=== PATIENT | male | born 1990 | race American Indian/Alaskan Native ===

== ENCOUNTER 2016-09-12 06:05 | Emergency (ER) | payer BC ==
[2016-09-12 06:18] VITALS: BP 138/78; PULSE 70; RESP 16; TEMP 97.7; O2SAT 98
--- NOTE | 2016-09-12 07:19 | ED PDOC ---
HPI: General Adult Time Seen by Provider: 09/12/16 06:12 Chief Complaint (Nursing): Lower Extremity Problem/Injury Chief Complaint (Provider): Insomnia History Per: Patient History/Exam Limitations: no limitations Onset/Duration Of Symptoms: Days (x6 months), Intermittent Episodes Have you had recent travel within the past 21 days to any of the following countries: [place], [place], [place] or [place]?: No Current Symptoms Are (Timing): Still Present Severity: Moderate Additional Complaint(s): Zaire Wheeler is a 26 year old male, with no pertinent past medical history, who presents to the emergency department for the evaluation of insomnia, that the patient has been experiencing for the past 6 months. Patient reports frustration due to his irregular sleep pattern and inability to fall asleep, prompting his visit to the emergency department. He also reports a diffuse, non-localized numbness sensation to his body. Associated bilateral foot pain is also currently present. 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 PMD: Fredy Bedolla Past Medical History Reviewed: Historical Data, Nursing Documentation, Vital Signs Vital Signs: Last Vital Signs Temp 97.7 F 09/12/16 06:13 Pulse 70 09/12/16 06:13 Resp 16 09/12/16 06:13 BP 138/78 09/12/16 06:13 Pulse Ox 98 09/12/16 10:23 - Medical History PMH: No Chronic Diseases - Surgical History Surgical History: No Surg Hx - Family History Family History: States: No Known Family Hx - Social History Current smoker - smoking cessation education provided: No Ex-Smoker (has not smoked in the last 12 months): Yes Alcohol: Occasional Drugs: Denies - Home Medications Home Medications: Ambulatory Orders Medication Instructions Recorded Ibuprofen [Motrin Tab] 800 mg PO Q8 PRN #20 tab 07/21/16 - Allergies Allergies/Adverse Reactions: Allergies Allergy/AdvReac Type Severity Reaction Status Date / Time No Known Allergies Allergy Verified 09/12/16 06:12 Review of Systems ROS Statement: Except As Marked, All Systems Reviewed And Found Negative Musculoskeletal: Positive for: Foot Pain (b/l) Neurological: Positive for: Numbness (diffuse) Psych: Positive for: Anxiety, Other (frustration due to insomnia) Physical Exam - Reviewed Nursing Documentation Reviewed: Yes Vital Signs Reviewed: Yes - Physical Exam Appears: Positive for: Non-toxic, No Acute Distress Head Exam: Positive for: ATRAUMATIC, NORMOCEPHALIC Skin: Positive for: Normal Color, Warm, Dry Eye Exam: Positive for: Normal appearance, EOMI, PERRL ENT: Positive for: Normal ENT Inspection. Negative for: Pharyngeal Erythema, Tonsillar Exudate, Tonsillar Swelling Neck: Positive for: Normal, Painless ROM Cardiovascular/Chest: Positive for: Regular Rate, Rhythm. Negative for: Murmur Respiratory: Positive for: Normal Breath Sounds. Negative for: Respiratory Distress Gastrointestinal/Abdominal: Positive for: Normal Exam, Soft. Negative for: Tenderness Back: Positive for: Normal Inspection. Negative for: L CVA Tenderness, R CVA Tenderness Extremity: Positive for: Normal ROM. Negative for: Tenderness, Swelling Neurologic/Psych: Positive for: Alert, Oriented - Laboratory Results Result Diagrams: 09/12/16 09:23 09/12/16 09:23 - ECG O2 Sat by Pulse Oximetry: 98 (RA) Pulse Ox Interpretation: Normal Medical Decision Making Medical Decision Makin:12 Initial Impression: 26 year old male with insomnia and paresthesia, indicative of underlying anxiety. Initial Plan: * Crisis Evaluation Patient s/o to Dr Gaspar at 7AM Scribe Attestation: Documented by Carlos Cabral, acting as a scribe for Sebastien Barreto MD. Provider Scribe Attestation: All medical record entries made by the Scribe were at my direction and personally dictated by me. I have reviewed the chart and agree that the record accurately reflects my personal performance of the history, physical exam, medical decision making, and the department course for this patient. I have also personally directed, reviewed, and agree with the discharge instructions and disposition. Disposition - Clinical Impression Clinical Impression: Paresthesia, Foot tendinitis, Insomnia - Disposition Referrals: [facility] [Outside] Podiatry Clinic [Outside] Hugo Mclain DPM [Doctor Podiatric Medicine] - Disposition: Transfer of Care Disposition Time: 07:00 Condition: GOOD Additional Instructions: Mr. Wheeler, thank you for letting us take care of you today. Return to the ER if your symptoms worsen, or if any problems. Follow up at our Podiatry Clinic or with Dr. Mclain (Data Processing Manager) regarding your foot tendinitis. Take Motrin for the foot pain. Regarding, the tingling you are having, please call our [facility] to make a follow up appointment. Instructions: Achilles Tendinitis (ED), Paresthesia (ED) Patient Signed Over To: Angel Gaspar Jr.
--- NOTE | 2016-09-12 07:37 | ED PDOC ---
- Laboratory Results Result Diagrams: 09/12/16 09:23 09/12/16 09:23 - ECG O2 Sat by Pulse Oximetry: 98 (RA) Medical Decision Making Medical Decision Makin:00 Patient signed off to Dr. Gaspar by Sebastien Barreto MD. Pending crisis evaluation. Scribe Attestation: Documented by Carlos Cabral, acting as a scribe for Angel Gaspar MD. Provider Scribe Attestation: All medical record entries made by the Scribe were at my direction and personally dictated by me. I have reviewed the chart and agree that the record accurately reflects my personal performance of the history, physical exam, medical decision making, and the department course for this patient. I have also personally directed, reviewed, and agree with the discharge instructions and disposition. Disposition - Clinical Impression Clinical Impression: Paresthesia, Foot tendinitis, Insomnia - POA Present On Arrival: None - Disposition Referrals: Podiatry Clinic [Outside] Hugo Mclain DPM [Doctor Podiatric Medicine] - [facility] [Outside] Disposition: Routine/Home Disposition Time: 10:18 Condition: STABLE Additional Instructions: Mr. Wheeler, thank you for letting us take care of you today. Return to the ER if your symptoms worsen, or if any problems. Follow up at our Podiatry Clinic or with Dr. Mclain (Masking Machine Operator) regarding your foot tendinitis. Take Motrin for the foot pain. Regarding, the tingling you are having, please call our [facility] to make a follow up appointment. Instructions: Paresthesia (ED), Achilles Tendinitis (ED) Progress Note - Review of Symptoms Events since last encounter: Pt seen by crisis. No behavioral health issues identified. Pt also c/o periodic lip and body swelling and foot pain (is being follow by podiatry). I sent labs to look into the paresthesias. Calcium level normal. Will d/c home.
[2016-09-12 09:59] LABS: ALB/GLOB RATIO 1.2 (1.0-2.1); ALKALINE PHOSPHATASE 45 U/L (38-126); ALT/SGPT 122 U/L (21-72); AST/SGOT 103 U/L (17-59); BILIRUBIN,TOTAL 0.9 mg/dl (0.2-1.3); BLOOD UREA NITROGEN 12 mg/dl (9-20); CALCIUM 9.6 mg/dL (8.4-10.2); CARBON DIOXIDE 28 mmol/L (22-30); CHLORIDE 101 mmol/L (98-107); GFR AFRICAN-AMERICAN > 60; GLUCOSE,RANDOM 90 mg/dL (75-110); POTASSIUM 4.3 MMOL/L (3.6-5.0); SODIUM 142 mmol/l (132-148); TOTAL PROTEIN 7.8 G/DL (6.3-8.2)
[2016-09-12 10:01] LABS: BASO % 0.7 % (0.0-2.0); EOS # 0.1 K/uL (0.0-0.7); EOS % 2.1 % (0.0-4.0); HEMATOCRIT 39.8 % (35.0-51.0); LYMPH % 49.7 % (20.0-40.0); MEAN CELL VOLUME 94.6 fl (80.0-94.0); MEAN CORPUSCULAR HEMOGLOBIN 31.9 pg (27.0-31.0); MEAN CORPUSCULAR HGB CONC 33.7 g/dL (33.0-37.0); MEAN PLATELET VOLUME 9.3 fl (7.2-11.7); MONO # 0.5 K/uL (0.0-0.8); MONO % 12.7 % (0.0-10.0); NEUT # 1.4 K/uL (1.8-7.0); NEUT % 34.8 % (50.0-75.0); NRBC % 0.2 % (0.0-0.0); RED CELL DISTRIBUTION WIDTH 12.6 % (11.5-14.5)
== END 2016-09-12 10:34 | disposition home or self-care (01) ==
LOC: H.ER 06:05
DX: G47.00 Insomnia, unspecified (principal); M77.50 Other enthesopathy of unspecified foot and ankle; R20.2 Paresthesia of skin

== ENCOUNTER 2017-06-20 23:36 | Emergency (ER) | payer SELFPAY ==
[2017-06-21 00:07] VITALS: BMI 36.6
[2017-06-21 00:10] VITALS: BP 134/84; PULSE 98; RESP 16; TEMP 99; O2SAT 98
[2017-06-21] MEDS ORDERED: Promethazine/Cod 6.25mg-10mg/5ml Syr UD PO STA (00:19)
[2017-06-21] MEDS ORDERED: Promethazine/Cod 6.25mg-10mg/5ml Syr UD ONE (00:28)
--- NOTE | 2017-06-21 01:04 | ED PDOC ---
HPI: CCC, URI, Sore Throat Time Seen by Provider: 06/21/17 00:12 Chief Complaint (Nursing): Flu-like Symptoms Chief Complaint (Provider): Flu-like symptoms History Per: Patient History/Exam Limitations: no limitations Onset/Duration Of Symptoms: Days (x2 weeks) Current Symptoms Are (Timing): Still Present Location Of Pain: Diffuse Myalgias Associated Symptoms: Fever (subjective), Chills (subjective), Cough (productive w/ yellow phlegm), Myalgias. denies: Nausea, Vomiting, Diarrhea Ear Symptoms: Bilateral: None Additional Complaint(s): Zaire Wheeler is a 26 year old male, with no past medical history, who presents to the emergency department complaining of a productive cough with yellow phlegm, back pain, and myalgias onset for x2 weeks. Patient states he felt feverish and chills at times. He has been drinking fluids and eating well. He denies any nausea, vomit or diarrhea. PMD: None provided. Past Medical History Reviewed: Historical Data, Nursing Documentation, Vital Signs Vital Signs: Last Vital Signs Temp 99.0 F 06/21/17 00:07 Pulse 98 H 06/21/17 00:07 Resp 16 06/21/17 00:07 BP 134/84 06/21/17 00:07 Pulse Ox 98 06/21/17 01:30 - Medical History PMH: Back Problems Denies: Diabetes, Hepatitis, HIV, HTN, Seizures, Sexually Transmitted Disease - Surgical History Surgical History: No Surg Hx - Family History Family History: States: Unknown Family Hx - Social History Current smoker - smoking cessation education provided: Yes (Occasional) Alcohol: Occasional - Home Medications Home Medications: Ambulatory Orders Medication Instructions Recorded Ibuprofen [Motrin Tab] 800 mg PO Q8 PRN #20 tab 07/21/16 Albuterol HFA [Ventolin HFA 90 1 - 2 puff IH Q6 PRN #1 inhaler 06/21/17 mcg/actuation (8 g)] Azithromycin [Zithromax] 250 mg PO QAM #1 pkg 06/21/17 predniSONE [predniSONE Tab] 60 mg PO QAM #15 tab 06/21/17 - Allergies Allergies/Adverse Reactions: Allergies Allergy/AdvReac Type Severity Reaction Status Date / Time No Known Allergies Allergy Verified 06/21/17 00:06 Review of Systems ROS Statement: Except As Marked, All Systems Reviewed And Found Negative Constitutional: Positive for: Fever (subjective), Chills (subjective) Respiratory: Positive for: Cough (productive w/ yellow phlegm ) Gastrointestinal: Negative for: Nausea, Vomiting, Diarrhea Musculoskeletal: Positive for: Back Pain, Other (myalgias) Physical Exam - Reviewed Nursing Documentation Reviewed: Yes Vital Signs Reviewed: Yes - Physical Exam Appears: Positive for: Well, Non-toxic, No Acute Distress Head Exam: Positive for: ATRAUMATIC, NORMAL INSPECTION, NORMOCEPHALIC Skin: Positive for: Normal Color, Warm, Dry Eye Exam: Positive for: Normal appearance, EOMI, PERRL Neck: Positive for: Normal, Painless ROM, Supple Cardiovascular/Chest: Positive for: Regular Rate, Rhythm. Negative for: Murmur Respiratory: Positive for: Normal Breath Sounds. Negative for: Respiratory Distress Gastrointestinal/Abdominal: Positive for: Normal Exam, Soft. Negative for: Tenderness, Guarding, Rebound Back: Positive for: Normal Inspection. Negative for: L CVA Tenderness, R CVA Tenderness, Vertebral Tenderness Extremity: Positive for: Normal ROM. Negative for: Deformity, Swelling Neurologic/Psych: Positive for: Alert, Oriented - ECG O2 Sat by Pulse Oximetry: 98 (RA) Pulse Ox Interpretation: Normal Medical Decision Making Medical Decision Making: Initial Impression: 26 y/o male w/ flu-like symptoms and productive cough. Initial Plan: --EKG --Chest two views (PA/LAT) [RAD] --Phenergan/Codeine Oral Syrup 10 ml PO --Influenza A B --Rapid Strep Group A Antigen --reevaluation 01:23 -X-Ray was negative, no active disease shown 01:28 --Upon provider evaluation patient is medically stable, and requires no further treatment in the ED at this time. Patient will be discharged home diagnosed with bronchitis. Counseling was provided and all questions were answered regarding diagnosis and need for follow up. There is agreement to discharge plan. Return if symptoms persist or worsen. Scribe Attestation: Documented by Aakash Boone, acting as a scribe for Sebastien Barreto MD Provider Scribe Attestation: All medical record entries made by the Scribe were at my direction and personally dictated by me. I have reviewed the chart and agree that the record accurately reflects my personal performance of the history, physical exam, medical decision making, and the department course for this patient. I have also personally directed, reviewed, and agree with the discharge instructions and disposition. Disposition - Clinical Impression Clinical Impression: Bronchitis - Disposition Referrals: Fredy Bedolla MD [Primary Care Provider] - Disposition Time: 01:28 Condition: STABLE Prescriptions: Albuterol HFA [Ventolin HFA 90 mcg/actuation (8 g)] 1 - 2 puff IH Q6 PRN #1 inhaler PRN Reason: Shortness Of Breath Azithromycin [Zithromax] 250 mg PO QAM #1 pkg predniSONE [predniSONE Tab] 60 mg PO QAM #15 tab Instructions: Acute Bronchitis (ED) Forms: [employer] (Togolese)
--- NOTE | 2017-06-21 07:43 | CARD ---
APPROVED REPORT EKG Measurement Heart [id number] <Conclusion> Normal sinus rhythm Normal ECG
--- NOTE | 2017-06-21 12:06 | RAD ---
HISTORY: cough COMPARISON: No prior. TECHNIQUE: Chest PA and lateral FINDINGS: LUNGS: No active pulmonary disease. PLEURA: No significant pleural effusion identified. No pneumothorax apparent. CARDIOVASCULAR: Normal. OSSEOUS STRUCTURES: No significant abnormalities. VISUALIZED UPPER ABDOMEN: Normal. OTHER FINDINGS: None. IMPRESSION: No radiographic evidence of pneumonia.
== END 2017-06-21 01:29 | disposition home or self-care (01) ==
LOC: H.ER 23:36
DX: J40 Bronchitis, not specified as acute or chronic (principal); F17.200 Nicotine dependence, unspecified, uncomplicated

== ENCOUNTER 2017-07-25 12:32 | Emergency (ER) | payer OTHER ==
[2017-07-25 12:32] VITALS: BMI 36.6
--- NOTE | 2017-07-25 13:33 | ED PDOC ---
HPI: General Adult Time Seen by Provider: 07/25/17 12:50 Chief Complaint (Nursing): Abdominal Pain History Per: Patient Additional Complaint(s): Pt. states for the past 3-4 days he's had cough, tactile fever, suprapubic abdominal pain, and yesterday he noticed blood streaked stools along with rectal pain. Further states that abdominal pain arises only when he attempts to have BM. Has been taking Tylenol and Nyquil. Last took Tylenol this morning. Denies vomiting, chest pain, SOB, recent NSAID use, anticoagulant therapy, hx of anemia, recent travel, diarrhea, hemoptysis, dysuria, hematuria, incontinence. Past Medical History Reviewed: Historical Data, Nursing Documentation, Vital Signs Vital Signs: Last Vital Signs Temp 98.9 F 07/25/17 12:43 Pulse 89 07/25/17 12:43 Resp 19 07/25/17 12:43 BP 121/78 07/25/17 12:43 Pulse Ox 99 07/25/17 13:34 - Medical History PMH: Back Problems Denies: Diabetes, Hepatitis, HIV, HTN, Seizures, Sexually Transmitted Disease - Surgical History Surgical History: No Surg Hx - Family History Family History: States: No Known Family Hx - Home Medications Home Medications: Ambulatory Orders Medication Instructions Recorded Ibuprofen [Motrin Tab] 800 mg PO Q8 PRN #20 tab 07/21/16 Albuterol HFA [Ventolin HFA 90 1 - 2 puff IH Q6 PRN #1 inhaler 06/21/17 mcg/actuation (8 g)] Azithromycin [Zithromax] 250 mg PO QAM #1 pkg 06/21/17 predniSONE [predniSONE Tab] 60 mg PO QAM #15 tab 06/21/17 Benzonatate [Tessalon Perle] 100 mg PO Q8 PRN #30 capsule 07/25/17 Dicyclomine [Bentyl] 20 mg PO Q8 PRN #15 tab 07/25/17 Naproxen [Naprosyn] 500 mg PO BID PRN #30 tab 07/25/17 - Allergies Allergies/Adverse Reactions: Allergies Allergy/AdvReac Type Severity Reaction Status Date / Time No Known Allergies Allergy Verified 06/21/17 00:06 Review of Systems ROS Statement: Except As Marked, All Systems Reviewed And Found Negative Gastrointestinal: Positive for: Abdominal Pain, Hematochezia, Rectal Pain Genitourinary Male: Negative for: Dysuria Physical Exam - Physical Exam Appears: Positive for: Well, Non-toxic, No Acute Distress Skin: Positive for: Normal Color, Warm. Negative for: Rash Eye Exam: Positive for: Normal appearance, EOMI, PERRL ENT: Positive for: Normal ENT Inspection Cardiovascular/Chest: Positive for: Regular Rate, Rhythm Respiratory: Positive for: CNT, Normal Breath Sounds Gastrointestinal/Abdominal: Positive for: Normal Exam, Soft. Negative for: Tenderness Back: Positive for: Normal Inspection. Negative for: L CVA Tenderness, R CVA Tenderness Extremity: Positive for: Normal ROM Neurologic/Psych: Positive for: Alert, Oriented - Laboratory Results Result Diagrams: 07/25/17 14:30 07/25/17 14:30 - ECG O2 Sat by Pulse Oximetry: 99 - Radiology X-Ray: Interpreted by Me (CXR) - Progress ED Course And Treament: Labs ordered. Disposition - Clinical Impression Clinical Impression: Viral syndrome - Patient ED Disposition Is Patient to be Admitted: No - Disposition Referrals: Fredy Bedolla MD [Primary Care Provider] - [facility] [Outside] Disposition: Routine/Home Disposition Time: 16:10 Condition: STABLE Prescriptions: Benzonatate [Tessalon Perle] 100 mg PO Q8 PRN #30 capsule PRN Reason: Cough Dicyclomine [Bentyl] 20 mg PO Q8 PRN #15 tab PRN Reason: abdominal pain Naproxen [Naprosyn] 500 mg PO BID PRN #30 tab PRN Reason: pain or fever Instructions: Viral Syndrome (DC) Forms: [employer] (American), [facility] ED School/Work Excuse Print Language: TURKMEN
--- NOTE | 2017-07-25 13:57 | RAD ---
HISTORY: cough COMPARISON: Comparison chest 06/21/2017 TECHNIQUE: Chest PA and lateral FINDINGS: LUNGS: No active pulmonary disease. PLEURA: No significant pleural effusion identified. No pneumothorax apparent. CARDIOVASCULAR: Normal. OSSEOUS STRUCTURES: No significant abnormalities. VISUALIZED UPPER ABDOMEN: Normal. OTHER FINDINGS: None. IMPRESSION: No active disease.
[2017-07-25 14:44] LABS: BASO % 0.7 % (0.0-2.0); EOS % 0.1 % (0.0-4.0); HEMOGLOBIN 13.6 g/dL (12.0-18.0); LYMPH # 1.1 K/uL (1.0-4.3); LYMPH % 22.6 % (20.0-40.0); MEAN CELL VOLUME 95.2 fl (80.0-94.0); MEAN CORPUSCULAR HEMOGLOBIN 32.7 pg (27.0-31.0); MEAN CORPUSCULAR HGB CONC 34.3 g/dL (33.0-37.0); MEAN PLATELET VOLUME 9.4 fl (7.2-11.7); MONO # 0.3 K/uL (0.0-0.8); MONO % 7.1 % (0.0-10.0); NEUT # 3.3 K/uL (1.8-7.0); NEUT % 69.5 % (50.0-75.0); NRBC % 0.2 % (0.0-0.0); RBC 4.15 Mil/uL (4.40-5.90); RED CELL DISTRIBUTION WIDTH 12.6 % (11.5-14.5); WHITE BLOOD COUNT 4.7 K/uL (4.8-10.8)
[2017-07-25 14:50] LABS: ALB/GLOB RATIO 1.1 (1.0-2.1); ALBUMIN 4.2 g/dL (3.5-5.0); ALT/SGPT 54 U/L (21-72); AST/SGOT 38 U/L (17-59); BLOOD UREA NITROGEN 8 mg/dl (9-20); CALCIUM 9.2 mg/dL (8.4-10.2); GFR AFRICAN-AMERICAN > 60; GFR NON-AFRICAN AMERICAN > 60
[2017-07-25 15:10] LABS: SQUAMOUS EPITHIAL < 1 /hpf (0-5); URINE BACTERIA RARE (<OCC); URINE BILIRUBIN NEGATIVE (NEGATIVE); URINE BLOOD NEGATIVE (NEGATIVE); URINE CLARITY SLIGHTY-CLOUDY (Clear); URINE COLOR AMBER (YELLOW); URINE GLUCOSE (UA) NEG (Normal); URINE LEUKOCYTE ESTERASE SMALL Leu/uL (Negative); URINE NITRATE NEGATIVE (NEGATIVE); URINE PROTEIN 30 mg/dL (NEGATIVE)
[2017-07-25 16:22] LABS: SQUAMOUS EPITHIAL < 1 /hpf (0-5); URINE BILIRUBIN NEGATIVE (NEGATIVE); URINE BLOOD NEGATIVE (NEGATIVE); URINE CLARITY SLIGHTY-CLOUDY (Clear); URINE COLOR AMBER (YELLOW); URINE GLUCOSE (UA) NEG (Normal); URINE LEUKOCYTE ESTERASE TRACE Leu/uL (Negative); URINE NITRATE NEGATIVE (NEGATIVE); URINE PROTEIN 30 mg/dL (NEGATIVE)
[2017-07-25 16:44] VITALS: BP 144/85; PULSE 88; RESP 20; TEMP 99.5; O2SAT 100
== END 2017-07-25 16:45 | disposition home or self-care (01) ==
LOC: SUPCPDRO 12:32 → H.ER 12:32
DX: B34.9 Viral infection, unspecified (principal)
CPT/HCPCS: 71046; 80053; 81003; 85025; 87040; 87086; 87804; 99282; G0328

== ENCOUNTER 2017-08-07 15:00 | Emergency (ER) | payer OTHER ==
[2017-08-07 15:01] VITALS: BMI 36.6
[2017-08-07 15:42] VITALS: BP 160/77; PULSE 89; RESP 21; TEMP 98.3; O2SAT 98
--- NOTE | 2017-08-07 16:01 | ED PDOC ---
Lower Extremity Pain/Injury Time Seen by Provider: 08/07/17 15:40 Chief Complaint (Nursing): Abnormal Skin Integrity Chief Complaint (Provider): Abscess on Left Inner Thigh History Per: Patient History/Exam Limitations: no limitations Onset/Duration Of Symptoms: Days Current Symptoms Are (Timing): Still Present Severity: None Additional Complaint(s): 27 year old male presents to the emergency department with an abscess on his left inner thigh x3 days. The patient states that today the abscess burst open. He reports that he has had similar things happen on both his legs. Denies fevers , chills. PMD: Fredy Lozada P - Risk Factors DVT Risk Factors: Pos: None Past Medical History Reviewed: Historical Data, Nursing Documentation, Vital Signs Vital Signs: Last Vital Signs Temp 98.3 F 08/07/17 15:42 Pulse 89 08/07/17 15:42 Resp 21 08/07/17 15:42 BP 160/77 H 08/07/17 15:42 Pulse Ox 98 08/07/17 15:42 - Medical History PMH: Back Problems Denies: Diabetes, Hepatitis, HIV, HTN, Seizures, Sexually Transmitted Disease - Surgical History Surgical History: No Surg Hx - Family History Family History: States: Unknown Family Hx - Social History Current smoker - smoking cessation education provided: Yes (Heavy Smoker > 10 Cigarettes Daily) Ex-Smoker (has not smoked in the last 12 months): Yes Alcohol: Social Drugs: Denies - Home Medications Home Medications: Ambulatory Orders Medication Instructions Recorded Ibuprofen [Motrin Tab] 800 mg PO Q8 PRN #20 tab 07/21/16 Albuterol HFA [Ventolin HFA 90 1 - 2 puff IH Q6 PRN #1 inhaler 06/21/17 mcg/actuation (8 g)] Azithromycin [Zithromax] 250 mg PO QAM #1 pkg 06/21/17 predniSONE [predniSONE Tab] 60 mg PO QAM #15 tab 06/21/17 Benzonatate [Tessalon Perle] 100 mg PO Q8 PRN #30 capsule 07/25/17 Dicyclomine [Bentyl] 20 mg PO Q8 PRN #15 tab 07/25/17 Naproxen [Naprosyn] 500 mg PO BID PRN #30 tab 07/25/17 Naproxen 375 mg PO Q8 PRN #21 tablet 08/07/17 Sulfamethoxazole/Trimethoprim 1 each PO BID #10 tablet 08/07/17 [Bactrim Ds Tablet] - Allergies Allergies/Adverse Reactions: Allergies Allergy/AdvReac Type Severity Reaction Status Date / Time No Known Allergies Allergy Verified 06/21/17 00:06 Review of Systems ROS Statement: Except As Marked, All Systems Reviewed And Found Negative Constitutional: Negative for: Fever, Chills Musculoskeletal: Positive for: Other (ruptured abscess to left inner thigh) Physical Exam - Reviewed Nursing Documentation Reviewed: Yes Vital Signs Reviewed: Yes - Physical Exam Appears: Positive for: Non-toxic, No Acute Distress Skin: Positive for: Normal Color, Warm, Dry. Negative for: Rash Eye Exam: Positive for: Normal appearance, EOMI, PERRL Extremity: Positive for: Normal ROM (left leg), Other (2cm abscess noted on left inner thigh open and draining; no signs of erythema ). Negative for: Tenderness, Deformity, Swelling Neurologic/Psych: Positive for: Alert, Oriented - ECG O2 Sat by Pulse Oximetry: 98 (RA) Pulse Ox Interpretation: Normal Medical Decision Making Medical Decision Makin Initial Impression 27 year old male presenting with ruptured abscess to left inner thigh Initial Plan: * Reevaluation 1557 wound cleansed with betadine and sterile dressing applied. 1653 Called to bedside at time of discharge as pt notes some numbness to 4th and 5 th x2 weeks. Denies injury Denies fall,s notes neck pain intermittently, unsure if related to pillow. Denies weakness, hand pain and elbow pain. Physical exam: Extremity Sensation noted in 5th and 4th digit, good interosseous strength. Able to flex and extend right hand. Patient advised follow up with clinic for EMG exam for ulnar nerve paresthesias , will prescribe naprosyn to help alleviate discomfort. Documented by aMliha Bloom acting as a scribe for Massiel Lara. All medical record entries made by the Scribe were at my direction and personally dictated by me. I have reviewed the chart and agree that the record accurately reflects my personal performance of the history, physical exam, medical decision making, and the department course for this patient. I have also personally directed, reviewed, and agree with the discharge instructions and disposition. Disposition - Clinical Impression Clinical Impression: Abscess - Patient ED Disposition Is Patient to be Admitted: No - Disposition Referrals: [facility] [Outside] Disposition: Routine/Home Disposition Time: 16:55 Condition: FAIR Additional Instructions: PLACE WARM COMPRESS ON ABSCESS REGION. IF ANY REDNESS/FEVER OR WORSENING SYMPTOMS, YOU CAN START ANTIBIOTICS. RETURN TO ED OR F/U WITH PMD FOR PERSISTENT WORSENING SYMPTOMS. Prescriptions: Naproxen 375 mg PO Q8 PRN #21 tablet PRN Reason: Pain, Moderate (4-7) Sulfamethoxazole/Trimethoprim [Bactrim Ds Tablet] 1 each PO BID #10 tablet Instructions: Boil Forms: [employer] (French)
[2017-08-07] MEDS ORDERED: Povidone Iodine Oint 10% Foilpak UD ONE (16:09)
== END 2017-08-07 16:56 | disposition home or self-care (01) ==
LOC: H.ER 15:00
DX: L02.416 Cutaneous abscess of left lower limb (principal); F17.210 Nicotine dependence, cigarettes, uncomplicated

== ENCOUNTER 2017-08-10 16:32 | Emergency (ER) | payer OTHER ==
[2017-08-10 16:32] VITALS: BMI 36.6
[2017-08-10 16:48] VITALS: RESP 16
--- NOTE | 2017-08-10 16:57 | ED PDOC ---
HPI: Abdomen Time Seen by Provider: 08/10/17 16:55 Chief Complaint (Nursing): Abdominal Pain Chief Complaint (Provider): ABDOMINAL PAIN History Per: Patient (27 Y/O MALE HERE WITH LUQ PAIN TODAY ASSOCIATED HEMATURIA. DENIES ANY DYSURIA. DENIES ANY BACK PAIN. DENIES ANY VOMITING/ DIARRHEA/FEVERS/CHILLS. NOTES EXCESSIVE DRINKING RECENLY FOR HIS BIRTHDAY. ) Past Medical History Reviewed: Historical Data, Nursing Documentation, Vital Signs Vital Signs: Last Vital Signs Temp 98.7 F 08/10/17 16:45 Pulse 91 H 08/10/17 16:45 Resp 16 08/10/17 16:45 BP 127/78 08/10/17 18:04 Pulse Ox 100 08/10/17 17:32 - Medical History PMH: Back Problems Denies: Diabetes, Hepatitis, HIV, HTN, Seizures, Sexually Transmitted Disease - Family History Family History: States: Unknown Family Hx - Home Medications Home Medications: Ambulatory Orders Medication Instructions Recorded Ibuprofen [Motrin Tab] 800 mg PO Q8 PRN #20 tab 07/21/16 Albuterol HFA [Ventolin HFA 90 1 - 2 puff IH Q6 PRN #1 inhaler 06/21/17 mcg/actuation (8 g)] Azithromycin [Zithromax] 250 mg PO QAM #1 pkg 06/21/17 predniSONE [predniSONE Tab] 60 mg PO QAM #15 tab 06/21/17 Benzonatate [Tessalon Perle] 100 mg PO Q8 PRN #30 capsule 07/25/17 Dicyclomine [Bentyl] 20 mg PO Q8 PRN #15 tab 07/25/17 Naproxen [Naprosyn] 500 mg PO BID PRN #30 tab 07/25/17 Naproxen 375 mg PO Q8 PRN #21 tablet 08/07/17 Sulfamethoxazole/Trimethoprim 1 each PO BID #10 tablet 08/07/17 [Bactrim Ds Tablet] Ciprofloxacin HCl [Cipro] 500 mg PO BID #14 tablet 08/10/17 Naproxen 375 mg PO Q8 PRN #15 tablet 08/10/17 - Allergies Allergies/Adverse Reactions: Allergies Allergy/AdvReac Type Severity Reaction Status Date / Time No Known Allergies Allergy Verified 06/21/17 00:06 Review of Systems ROS Statement: Except As Marked, All Systems Reviewed And Found Negative Gastrointestinal: Positive for: Abdominal Pain Genitourinary Male: Positive for: Hematuria Physical Exam - Reviewed Nursing Documentation Reviewed: Yes Vital Signs Reviewed: Yes - Physical Exam Appears: Positive for: Well, Non-toxic, No Acute Distress Head Exam: Positive for: ATRAUMATIC, NORMAL INSPECTION, NORMOCEPHALIC Skin: Positive for: Normal Color, Warm, DRY Eye Exam: Positive for: EOMI, Normal appearance, PERRL ENT: Positive for: Normal ENT Inspection Neck: Positive for: Normal, Painless ROM Cardiovascular/Chest: Positive for: Regular Rate, Rhythm Respiratory: Positive for: CNT, Normal Breath Sounds Gastrointestinal/Abdominal: Positive for: Normal Exam, Bowel Sounds, Soft, Tenderness (LUQ TENDERNESS) Back: Positive for: Normal Inspection Extremity: Positive for: Normal ROM Neurologic/Psych: Positive for: Alert, Oriented - Laboratory Results Result Diagrams: 08/10/17 17:44 Urine dip results: Positive for: Leukocyte Esterase, Blood. Negative for: Nitrate, Ketones, Glucose, Bilirubin - ECG O2 Sat by Pulse Oximetry: 100 - Progress ED Course And Treament: NS 1 LITER WIDE OPEN MAALOX 30 ML PO X 1 DOSE TORADOL 15 MG IV X [address] ABD/PELVIS: IMPRESSION: Unremarkable non contrast enhanced CT of the abdomen and pelvis. UTI NOTED ON URINALYSIS. PATIENT NOTES PAIN MIGRATED LOWER. POSSIBLE PASSED KIDNEY STONE ROCEPHIN 1 GM IV X 1 DOSE Disposition - Clinical Impression Clinical Impression: UTI (urinary tract infection) - Patient ED Disposition Is Patient to be Admitted: No - Disposition Referrals: Ree Mejia MD [Medical Doctor] - Disposition: Routine/Home Disposition Time: 18:24 Condition: FAIR Prescriptions: Ciprofloxacin HCl [Cipro] 500 mg PO BID #14 tablet Naproxen 375 mg PO Q8 PRN #15 tablet PRN Reason: Pain, Moderate (4-7) Instructions: Urinary Tract Infection, Adult (DC) Forms: [email or web address] [facility] (Syriac), [facility] ED School/Work Excuse
[2017-08-10 17:17] LABS: SQUAMOUS EPITHIAL < 1 /hpf (0-5); URINE BACTERIA OCC (<OCC); URINE BILIRUBIN NEGATIVE (NEGATIVE); URINE BLOOD LARGE (NEGATIVE); URINE CLARITY CLOUDY (Clear); URINE COLOR RED (YELLOW); URINE GLUCOSE (UA) NEG (Normal); URINE LEUKOCYTE ESTERASE LARGE Leu/uL (Negative); URINE PROTEIN 100 mg/dL (NEGATIVE); URINE UROBILINOGEN 0.2-1.0 mg/dL (0.2-1.0)
[2017-08-10] MEDS ORDERED: Alum-Mag Hydrox-Simethicone Susp (30 mL) ONE (17:46)
[2017-08-10 17:48] LABS: BASO % 0.6 % (0.0-2.0); EOS % 0.5 % (0.0-4.0); HEMOGLOBIN 14.1 g/dL (12.0-18.0); LYMPH # 1.7 K/uL (1.0-4.3); LYMPH % 23.8 % (20.0-40.0); MEAN CELL VOLUME 94.3 fl (80.0-94.0); MEAN CORPUSCULAR HEMOGLOBIN 32.5 pg (27.0-31.0); MEAN CORPUSCULAR HGB CONC 34.4 g/dL (33.0-37.0); MEAN PLATELET VOLUME 8.9 fl (7.2-11.7); MONO # 0.6 K/uL (0.0-0.8); MONO % 8.2 % (0.0-10.0); NEUT # 4.9 K/uL (1.8-7.0); NEUT % 66.9 % (50.0-75.0); NRBC % 0.1 % (0.0-0.0); RBC 4.33 Mil/uL (4.40-5.90); RED CELL DISTRIBUTION WIDTH 12.6 % (11.5-14.5); WHITE BLOOD COUNT 7.3 K/uL (4.8-10.8)
[2017-08-10] MEDS: Sodium Chloride 0.9% 1,000 ML IV STA (17:50)
[2017-08-10] MEDS: Alum-Mag Hydrox-Simethicone Susp (30 mL) PO STA (17:53)
--- NOTE | 2017-08-10 17:53 | CT ---
PROCEDURE: CT Abdomen and Pelvis without intravenous contrast HISTORY: Abdominal pain. Renal column suspected COMPARISON: 08/07/2013 CT abdomen and pelvis. TECHNIQUE: Technique. Contrast Dose: Radiation dose: Total exam DLP = Total exam DLP = mGy-cm. This CT exam was performed using one or more of the following dose reduction techniques: Automated exposure control, adjustment of the mA and/or kV according to patient size, and/or use of iterative reconstruction technique. FINDINGS: LOWER THORAX: Unremarkable. LIVER: Unremarkable. No gross lesion or ductal dilatation. GALLBLADDER AND BILE DUCTS: Unremarkable. PANCREAS: Unremarkable. No gross lesion or ductal dilatation. SPLEEN: Unremarkable. ADRENALS: Unremarkable. No mass. KIDNEYS AND URETERS: Unremarkable. No hydronephrosis. No solid mass. VASCULATURE: Unremarkable. No aortic aneurysm. BOWEL: Unremarkable. No obstruction. No gross mural thickening. APPENDIX: Unremarkable. Normal appendix. PERITONEUM: Unremarkable. No free fluid. No free air. LYMPH NODES: Unremarkable. No enlarged lymph nodes. BLADDER: Unremarkable. REPRODUCTIVE: Unremarkable. BONES: No acute fracture. OTHER FINDINGS: None. IMPRESSION: Unremarkable non contrast enhanced CT of the abdomen and pelvis.
[2017-08-10] MEDS ORDERED: cefTRIAXone (Rocephin) 1 gm Inj IVPB ONE (18:20)
[2017-08-10 18:31] LABS: ALB/GLOB RATIO 1.2 (1.0-2.1); ALBUMIN 4.7 g/dL (3.5-5.0); ALT/SGPT 80 U/L (21-72); AST/SGOT 51 U/L (17-59); BLOOD UREA NITROGEN 9 mg/dl (9-20); CALCIUM 9.8 mg/dL (8.4-10.2); GFR AFRICAN-AMERICAN > 60; GFR NON-AFRICAN AMERICAN > 60; LIPASE 154 U/L (23-300)
[2017-08-10] MEDS ORDERED: cefTRIAXone (Rocephin) 1 gm Inj ONE (18:35)
[2017-08-10 19:54] VITALS: BP 130/69; PULSE 87; TEMP 98.4; O2SAT 98
== END 2017-08-10 20:00 | disposition home or self-care (01) ==
LOC: H.ER 16:32
DX: N39.0 Urinary tract infection, site not specified (principal)
CPT/HCPCS: 74176; 80053; 81003; 83690; 85025; 87086; 87181; 96361; 96365; 96375; 99285; J0696; J1885; J7040

== ENCOUNTER 2017-11-04 08:26 | Emergency (ER) | payer OTHER ==
[2017-11-04 08:32] VITALS: BMI 37.3
[2017-11-04 08:34] VITALS: BP 134/87; PULSE 79; RESP 16; TEMP 98.4; O2SAT 99
--- NOTE | 2017-11-04 08:52 | ED PDOC ---
HPI: General Adult Time Seen by Provider: 11/04/17 08:32 Chief Complaint (Nursing): Abnormal Skin Integrity Chief Complaint (Provider): Rash History Per: Patient History/Exam Limitations: no limitations Onset/Duration Of Symptoms: Days (x3) Other Location:: [place] Current Symptoms Are (Timing): Still Present Additional Complaint(s): 27 y/o male with no significant pmhx who presents for evaluation of generalized rash x3 days. Patient states he returned from [place] on the where he stayed in a house with friends and they all developed a generalized itchy rash. He denies any fever or other symptoms. Patient states there were a lot of mosquitos in the area. PMD: Dr. Bedolla Past Medical History Reviewed: Historical Data, Nursing Documentation, Vital Signs Vital Signs: Last Vital Signs Temp 98.4 F 11/04/17 08:32 Pulse 79 11/04/17 08:32 Resp 16 11/04/17 08:32 BP 134/87 11/04/17 08:32 Pulse Ox 99 11/04/17 08:59 - Medical History PMH: Back Problems Denies: Diabetes, Hepatitis, HIV, HTN, Seizures, Sexually Transmitted Disease - Surgical History Surgical History: No Surg Hx - Family History Family History: States: Unknown Family Hx - Home Medications Home Medications: Ambulatory Orders Medication Instructions Recorded Permethrin 1% Kit [Nix Complete 1 bottle TOP DAILY #1 bottle 11/04/17 Lice Elimination Kit 1%] DiphenhydrAMINE [Benadryl] 50 mg PO Q8H PRN #15 cap 11/06/17 - Allergies Allergies/Adverse Reactions: Allergies Allergy/AdvReac Type Severity Reaction Status Date / Time No Known Allergies Allergy Verified 11/06/17 08:24 Review of Systems ROS Statement: Except As Marked, All Systems Reviewed And Found Negative Constitutional: Negative for: Fever Respiratory: Negative for: Shortness of Breath Skin: Positive for: Rash Physical Exam - Reviewed Nursing Documentation Reviewed: Yes Vital Signs Reviewed: Yes - Physical Exam Appears: Positive for: Non-toxic, No Acute Distress Head Exam: Positive for: ATRAUMATIC, NORMAL INSPECTION, NORMOCEPHALIC Skin: Positive for: Normal Color, Warm, Dry, Rash (generalized papular rash (> bilateral arms/legs/lowe back), no target lesions, no induration, no scaling, no vesicles) Eye Exam: Positive for: EOMI, Normal appearance, PERRL ENT: Positive for: Normal ENT Inspection (speaking full sentences) Cardiovascular/Chest: Positive for: Regular Rate, Rhythm. Negative for: Murmur Respiratory: Positive for: Normal Breath Sounds. Negative for: Respiratory Distress Extremity: Positive for: Normal ROM. Negative for: Pedal Edema, Deformity Neurologic/Psych: Positive for: Alert, Oriented. Negative for: Motor/Sensory Deficits - ECG O2 Sat by Pulse Oximetry: 99 (RA) Pulse Ox Interpretation: Normal Medical Decision Making Medical Decision Making: Clinical Impression: Scabies Plan: Patient will be discharged home with Rx for Permethrin 1% kit. Counseling was provided and all questions were answered regarding diagnosis and need for follow up with PMD. There is agreement to discharge plan. Return if symptoms persist or worsen. Scribe Attestation: Documented by Osmani Kolb, acting as a scribe for Samantha Treviño MD. Provider Scribe Attestation: All medical record entries made by the Scribe were at my direction and personally dictated by me. I have reviewed the chart and agree that the record accurately reflects my personal performance of the history, physical exam, medical decision making, and the department course for this patient. I have also personally directed, reviewed, and agree with the discharge instructions and disposition. Disposition - Clinical Impression Clinical Impression: Scabies - Patient ED Disposition Is Patient to be Admitted: No Counseled Patient/Family Regarding: Diagnosis, Need For Followup, Rx Given - Disposition Referrals: Fredy Bedolla MD [Staff Provider] - Disposition: Routine/Home Disposition Time: 08:48 Condition: GOOD Prescriptions: Permethrin 1% Kit [Nix Complete Lice Elimination Kit 1%] 1 bottle TOP DAILY #1 bottle Instructions: Scabies Forms: [facility] (Frisian)
== END 2017-11-04 09:06 | disposition home or self-care (01) ==
LOC: H.ER 08:26
DX: B86 Scabies (principal)

== ENCOUNTER 2017-11-06 08:03 | Emergency (ER) | payer OTHER ==
[2017-11-06 08:03] VITALS: BMI 37.3
[2017-11-06 08:13] VITALS: BP 132/82; PULSE 84; RESP 20; TEMP 98; O2SAT 98
--- NOTE | 2017-11-06 09:06 | ED PDOC ---
HPI: Skin/Bite Injury Time Seen by Provider: 11/06/17 08:26 Chief Complaint (Nursing): Abnormal Skin Integrity Chief Complaint (Provider): Scabies History Per: Patient History/Exam Limitations: no limitations Onset/Duration Of Symptoms: Days (x2) Current Symptoms Are (Timing): Better Additional Complaint(s): 27 year old male presents to the emergency department for reevaluation of his scabies which was diagnosed here on 11/04 after returning from [place]. He thinks he was bitten by mosquitos. Patient was initially prescribed a cream, to which he purchased more of after he felt it was not resolving. Currently, besides the itch, he is complaining of numbness to this 4th and 5th digits on his left hand for four months associated with swelling onset two days. Patient recently saw his PMD for similar symptoms. PMD: Opal Bedolla Past Medical History Reviewed: Historical Data, Nursing Documentation, Vital Signs Vital Signs: Last Vital Signs Temp 98.0 F 11/06/17 08:13 Pulse 84 11/06/17 08:13 Resp 20 11/06/17 08:13 BP 132/82 11/06/17 08:13 Pulse Ox 98 11/06/17 10:03 - Medical History PMH: Back Problems Denies: Diabetes, Hepatitis, HIV, HTN, Seizures, Sexually Transmitted Disease - Surgical History Surgical History: No Surg Hx - Family History Family History: States: Unknown Family Hx - Home Medications Home Medications: Ambulatory Orders Medication Instructions Recorded Permethrin 1% Kit [Nix Complete 1 bottle TOP DAILY #1 bottle 11/04/17 Lice Elimination Kit 1%] - Allergies Allergies/Adverse Reactions: Allergies Allergy/AdvReac Type Severity Reaction Status Date / Time No Known Allergies Allergy Verified 11/06/17 08:24 Review of Systems ROS Statement: Except As Marked, All Systems Reviewed And Found Negative Musculoskeletal: Positive for: Other (left hand swelling) Skin: Positive for: Rash (scabies) Physical Exam - Reviewed Nursing Documentation Reviewed: Yes Vital Signs Reviewed: Yes - Physical Exam Appears: Positive for: No Acute Distress Head Exam: Positive for: ATRAUMATIC, NORMOCEPHALIC Skin: Positive for: Rash (papular lesions on arms, legs, and back - decreased amount from 11/04) Eye Exam: Positive for: Normal appearance Pulses-Radial (L): 2+ Pulses-Radial (R): 2+ Extremity: Positive for: Normal ROM (of left hand), Capillary Refill (less than 2 seconds), Other (Minimal edema to posterior medial left hand with mild decreased sensation; muscle stength 5/5) Neurologic/Psych: Positive for: Alert, Oriented (x3). Negative for: Motor/ Sensory Deficits - ECG O2 Sat by Pulse Oximetry: 98 (RA) Pulse Ox Interpretation: Normal Medical Decision Making Medical Decision Making: Initial Impression: scabies, left hand swelling Time: 09:04 Initial Plan: --Benadryl 50mg PO --Left Upper Extremity US 10:44 Left UE US FINDINGS: Normal flow, compressibility and respiratory phasicity was observed in the the left upper extremity deep veins. IMPRESSION: No evidence of deep venous thrombosis. Scribe Attestation: Documented by Charlene Alvarado, acting as a scribe for Samantha Treviño MD. Provider Scribe Attestation: All medical entries made by the Scribe were at my direction and personally dictated by me. I have reviewed the chart and agree that the record accurately reflects my personal performance of the history, physical exam, medical decision making, and the department course for this patient. I have also personally directed, reviewed, and agree with the discharge instructions and disposition. Disposition - Disposition Forms: [employer] (Irish)
--- NOTE | 2017-11-06 10:46 | US ---
PROCEDURE: Left Upper Extremity Venous Doppler HISTORY: L hand swelling COMPARISON: None available. TECHNIQUE: Left upper extremity deep veins, including the lower internal jugular, subclavian, axillary and brachial veins, were evaluated flow, compressibility and respiratory phasicity. Cephalic, basilic, radial and ulnar veins were also evaluated. FINDINGS: Normal flow, compressibility and respiratory phasicity was observed in the the left upper extremity deep veins. IMPRESSION: No evidence of deep venous thrombosis.
== END 2017-11-06 11:10 | disposition home or self-care (01) ==
LOC: H.ER 08:03
DX: B86 Scabies (principal)

== ENCOUNTER 2018-06-28 07:48 | Emergency (ER) | payer MEDICAID, OTHER ==
[2018-06-28 07:48] VITALS: BMI 37.3
--- NOTE | 2018-06-28 09:10 | ED PDOC ---
HPI: Headache Additional Complaint(s): 27 y/o male w/ no pmhx presenting with soreness/pressure in posterior head and small palpable lump in posterior neck. States he has felt sore in the back of his head for 2 days and noticed a small tender lump in the left posterior head. Also reports right tooth ache that has been bothering him for a while. He denies any recent head trauma, fever/chills, cough, n/v/d, body aches, blurry vision, motor/sensory defects, rigid neck, or discharge from lump. States he was concerned about the cause of the lump and if he could participate in work physical assessment tomorrow. Also stated, his insurance just become activated recently and he wanted to get it checked out. Denies taking any analgesic medication. PMD: Dr. Fredy Vázquez Denies any chronic medical conditions Denies any surgical family hx Denies any allergies Denies heavy alcohol use, smoking, or illicit drug use <Elroy Graham - Last Filed: 06/28/18 11:04> <Janie Winters - Last Filed: 06/29/18 08:47> Time Seen by Provider: 06/28/18 07:58 Chief Complaint (Nursing): Headache Supervising Attending Note - Supervising Attending Note The Documented history was done by the: Physician Septic Tank Servicer, Attending Physician The documented physical exam was done by the: Physician Septic Tank Servicer, Attending Physician The documented procedures were done by the: Physician Septic Tank Servicer, Attending Physician - Attestation: I have personally seen and examined this patient.: Yes I have fully participated in the care of the patient.: Yes I have reviewed all pertinent clinical information: Yes <Janie Winters - Last Filed: 06/29/18 08:47> Past Medical History - Medical History PMH: No Chronic Diseases, Back Problems Denies: Diabetes, Hepatitis, HIV, HTN, Seizures, Sexually Transmitted Disease - Surgical History Surgical History: No Surg Hx - Family History Family History: States: Unknown Family Hx <Elroy Graham - Last Filed: 06/28/18 11:04> Reviewed: Historical Data, Nursing Documentation, Vital Signs Vital Signs: Last Vital Signs Temp 97 F L 06/28/18 08:15 Pulse 70 06/28/18 10:00 Resp 18 06/28/18 10:00 BP 130/80 06/28/18 10:00 Pulse Ox 99 06/28/18 10:00 <Janie Winters - Last Filed: 06/29/18 08:47> - Home Medications Home Medications: Ambulatory Orders Medication Instructions Recorded RX: Permethrin 1% Kit [Nix 1 bottle TOP DAILY #1 bottle 11/04/17 Complete Lice Elimination Kit 1%] DiphenhydrAMINE [Benadryl] 50 mg PO Q8H PRN #15 cap 11/06/17 Amoxicillin [Amoxil 500 mg Cap] 500 mg PO BID 7 Days #14 cap 06/28/18 Ibuprofen [Motrin] 600 mg PO Q6 5 Days #20 tab 06/28/18 - Allergies Allergies/Adverse Reactions: Allergies Allergy/AdvReac Type Severity Reaction Status Date / Time No Known Allergies Allergy Verified 11/06/17 08:24 Review of Systems Constitutional: Negative for: Fever, Chills, Sweats Eyes: Negative for: Pain ENT: Negative for: Ear Pain, Nose Pain, Nose Discharge Cardiovascular: Negative for: Chest Pain, Palpitations, Orthopnea Respiratory: Negative for: Cough, Shortness of Breath Gastrointestinal: Negative for: Nausea, Vomiting, Abdominal Pain Musculoskeletal: Negative for: Neck Pain, Shoulder Pain Neurological: Negative for: Weakness, Numbness, Incoordination, Change in Speech, Confusion, Seizures, Altered Mental Status, Headache, Dizziness <Elroy Graham - Last Filed: 06/28/18 11:04> ROS Statement: Except As Marked, All Systems Reviewed And Found Negative <Janie Winters - Last Filed: 06/29/18 08:47> Physical Exam - Physical Exam Appears: Positive for: Well, No Acute Distress Head Exam: Positive for: ATRAUMATIC (bilateral posterior scalp swelling (fat pad, pt reports having it for many years), Small ~2-3 cm palpable mildy tendern lymph node in left posterior scalp. No warmth, redness, skin intact, no fluctance. No other lymphadenopathy.) Skin: Negative for: Diaphoresis Eye Exam: Positive for: Normal appearance ENT: Positive for: Normal ENT Inspection, Other (dentition- cavity seen in right upper moral, no signs of cellulitis on adjacent mucusa). Negative for: Sinus Pain/Drainage, Nasal Congestion, Pharyngeal Erythema, Tonsillar Exudate, Tonsillar Swelling Neck: Positive for: Normal, Painless ROM, Supple Respiratory: Positive for: Normal Breath Sounds. Negative for: Accessory Muscle Use, Wheezing, Respiratory Distress Pulses-Carotid (L): 2+ Pulses-Carotid (R): 2+ Pulses-Radial (L): 2+ Pulses-Radial (R): 2+ Gastrointestinal/Abdominal: Positive for: Normal Exam, Bowel Sounds, Soft. Negative for: Tenderness Back: Positive for: Normal Inspection Extremity: Positive for: Normal ROM Neurologic/Psych: Positive for: Alert, hospital social worker II-XII, Oriented, Mood/Affect, Gait (normal). Negative for: Motor/Sensory Deficits, Facial Droop <Elroy Graham - Last Filed: 06/28/18 11:04> - Reviewed Nursing Documentation Reviewed: Yes Vital Signs Reviewed: Yes <Janie Winters - Last Filed: 06/29/18 08:47> Medical Decision Making Medical Decision Making: Likely reactive lymph node. No concerning features for abscess/growth/mass on history and exam. May be secondary to dental cavity. Pt reassured and advised to f/u with dentist and PMD. <Elroy Graham - Last Filed: 06/28/18 11:04> Disposition - Patient ED Disposition Is Patient to be Admitted: No Doctor Will See Patient In The: Office Counseled Patient/Family Regarding: Studies Performed, Diagnosis, Need For Followup, Rx Given - Disposition Disposition: Routine/Home Disposition Time: 10:00 <Elroy Graham - Last Filed: 06/28/18 11:04> <Janie Winters - Last Filed: 06/29/18 08:47> - Clinical Impression Clinical Impression: Headache, Lymphadenopathy - Disposition Referrals: Fredy Bedolla MD [Family Provider] - Condition: GOOD Additional Instructions: [facility], thank you for letting us take care of you today. Your provider was Janie Winters MD and you were treated for HEADACHE. The emergency medical care you received today was directed at your acute symptoms. If you were prescribed any medication, please fill it and take as directed. It may take several days for your symptoms to resolve. Return to the Emergency Department if your symptoms worsen, do not improve, or if you have any other problems. Please contact your doctor or call one of the physicians/clinics you have been referred to that are listed on the Patient Visit Information form that is included in your discharge packet. Bring any paperwork you were given at discharge with you along with any medications you are taking to your follow up visit. Our treatment cannot replace ongoing medical care by a primary care provider outside of the emergency department. Thank you for allowing the [facility] team to be part of your care today. If you had an X-Ray or CT scan: A Radiologist will review the ED reading if any change in treatment is needed we will contact you. If you had a blood, urine, or wound culture: It will take several days for the results, if any change in treatment is needed we will contact you. If you had an STI test: It will take 48 hours for the results. Please call after 1 week if you have not heard back. Prescriptions: Amoxicillin [Amoxil 500 mg Cap] 500 mg PO BID 7 Days #14 cap Ibuprofen [Motrin] 600 mg PO Q6 5 Days #20 tab Instructions: Lymphadenitis (DC)
[2018-06-28 10:01] VITALS: RESP 18; TEMP 97
[2018-06-28 10:18] VITALS: BP 130/80; PULSE 70; O2SAT 99
== END 2018-06-28 10:02 | disposition home or self-care (01) ==
LOC: H.ER 07:48
DX: R51 Headache (principal); R59.1 Generalized enlarged lymph nodes